=== PATIENT | female | born 1980 | race American Indian/Alaskan Native ===

== ENCOUNTER 2021-04-19 17:55 | Observation (INO) | payer SELFPAY ==
[2021-04-19] MEDS ORDERED: ONDANSETRON 4 MG/2 ML INJ IV ONE (18:38)
[2021-04-19] MEDS ORDERED: SODIUM CHLORIDE 0.9% 1000 ML 1,000 ML IV ONE (18:38)
[2021-04-19] MEDS ORDERED: KETOROLAC 30 MG/1 ML INJ IV ONE (18:38)
[2021-04-19 19:54] LABS: Basophils # (Auto) 0.1 K/mm3 (0.0-0.1); Basophils % (Auto) 0.6 % (0.0-1.8); Lymphocytes # (Auto) 1.7 K/mm3 (1.2-5.4); Lymphocytes % (Auto) 14.4 % (13.4-35.0); Mean Corpuscular HGB Conc 27 % (30-34); Monocytes # (Auto) 1.8 K/mm3 (0.0-0.8); Monocytes % (Auto) 14.8 % (0.0-7.3); Platelet Count 332 K/mm3 (140-440); Red Blood Count 3.26 M/mm3 (3.65-5.03)
[2021-04-19 19:56] LABS: Mean Corpuscular Volume 59 fl (79-97); Red Cell Distribution Width 20.7 % (13.2-15.2)
[2021-04-19 19:57] LABS: Hemoglobin 5.2 gm/dl (10.1-14.3)
[2021-04-19 19:58] LABS: Hematocrit 19.2 % (30.3-42.9)
[2021-04-19] MEDS ORDERED: SODIUM CHLORIDE 0.9% 500 ML 500 ML IV ONE (20:02)
--- NOTE | 2021-04-19 20:12 | Emergency Department Report ---
ED Lower Extremity HPI - General Chief Complaint: Extremity Injury, Lower Stated Complaint: L ANKLE PAIN Time Seen by Provider: 04/19/21 18:32 Source: patient, EMS Mode of arrival: Stretcher Limitations: No Limitations - History of Present Illness Initial Comments: PT PRESENTS WITH L ANKLE PAIN/SWELLING X2 DAYS. DENIES INJURIES. pt has history of iron deficiency anemia , doesn't take any meds , pt is poor historian , very uncooperative , denies fever chest pain or sob -: Gradual, days(s) (2) Injury: Ankle: Left Place: home Severity scale (0 -10): 7 Improves With: nothing Worsens With: weight bearing Context: other (sponatnaous ) - Related Data Allergies Allergy/AdvReac Type Severity Reaction Status Date / Time No Known Allergies Allergy Verified 04/19/21 17:57 ED Review of Systems ROS: Stated complaint: L ANKLE PAIN Other details as noted in HPI Constitutional: denies: chills, fever Eyes: denies: eye pain, eye discharge, vision change ENT: denies: ear pain, throat pain Respiratory: denies: cough, shortness of breath, wheezing Cardiovascular: denies: chest pain, palpitations Endocrine: no symptoms reported Gastrointestinal: denies: abdominal pain, nausea, diarrhea Genitourinary: denies: urgency, dysuria, discharge Musculoskeletal: denies: back pain, joint swelling, arthralgia Skin: denies: rash, lesions Neurological: denies: headache, weakness, paresthesias Psychiatric: denies: anxiety, depression Hematological/Lymphatic: denies: easy bleeding, easy bruising ED Past Medical Hx - Past Medical History Previous Medical History?: No ED Physical Exam - General Limitations: No Limitations General appearance: alert, in no apparent distress, other (uncooperative ) - Head Head exam: Present: atraumatic, normocephalic - Eye Eye exam: Present: normal appearance - ENT ENT exam: Present: mucous membranes moist - Neck Neck exam: Present: normal inspection - Respiratory Respiratory exam: Present: normal lung sounds bilaterally. Absent: respiratory distress - Cardiovascular Cardiovascular Exam: Present: regular rate, normal rhythm. Absent: systolic mu rmur, diastolic murmur, rubs, gallop - GI/Abdominal GI/Abdominal exam: Present: soft, normal bowel sounds - Extremities Exam Extremities exam: Present: normal inspection - Expanded Lower Extremity Exam Left Hip exam: Present: tenderness, swelling Ankle exam: Present: tenderness, swelling, erythema - Back Exam Back exam: Present: normal inspection - Neurological Exam Neurological exam: Present: alert, oriented X3 - Psychiatric Psychiatric exam: Present: normal affect, normal mood - Skin Skin exam: Present: warm, dry, intact, normal color. Absent: rash ED Course Vital Signs 04/19/21 04/19/21 04/19/21 17:56 19:25 20:32 Temperature 98 F Pulse Rate 108 H Respiratory 20 15 Rate Blood Pressure Blood Pressure 128/64 [Right] O2 Sat by Pulse 97 96 Oximetry 04/19/21 04/19/21 04/19/21 20:36 20:40 20:50 Temperature 97.5 F L Pulse Rate 109 H Respiratory 17 Rate Blood Pressure 95/48 95/48 Blood Pressure 87/40 [Right] O2 Sat by Pulse 95 100 100 Oximetry 04/19/21 04/19/21 04/19/21 21:00 21:10 21:20 Temperature Pulse Rate Respiratory Rate Blood Pressure 105/50 105/50 105/50 Blood Pressure [Right] O2 Sat by Pulse 99 100 100 Oximetry 04/19/21 04/19/21 04/19/21 21:30 21:40 21:50 Temperature Pulse Rate Respiratory Rate Blood Pressure 99/46 99/46 99/46 Blood Pressure [Right] O2 Sat by Pulse 99 100 100 Oximetry 04/19/21 04/19/21 04/19/21 22:00 22:10 22:15 Temperature 98.3 F 98.1 F Pulse Rate 96 H 104 H Respiratory 17 17 Rate Blood Pressure 87/39 87/39 87/39 Blood Pressure [Right] O2 Sat by Pulse 100 99 100 Oximetry 04/19/21 04/19/21 04/19/21 22:20 22:30 22:40 Temperature Pulse Rate Respiratory Rate Blood Pressure 87/39 97/48 97/48 Blood Pressure [Right] O2 Sat by Pulse 100 100 99 Oximetry 04/19/21 04/19/21 04/19/21 22:45 22:50 23:00 Temperature 98.8 F Pulse Rate 102 H Respiratory 15 Rate Blood Pressure 97/48 97/48 95/45 Blood Pressure [Right] O2 Sat by Pulse 99 99 100 Oximetry 04/19/21 04/19/21 23:04 23:05 Temperature 97.9 F 98.8 F Pulse Rate 94 H 95 H Respiratory 15 15 Rate Blood Pressure 95/45 95/45 Blood Pressure [Right] O2 Sat by Pulse 100 100 Oximetry - Reevaluation(s) Reevaluation #1: 04/19/21 20:08 pt is very uncooperative , causing mutlipleproblems with staff , initially she refused blood work and IV then refused morphine because she is allergic to but she never mentioned before , then she became silent refusing to answer any questions , then refused x ray then she didn;t allow US tech to do US cos she wanted to pee, brought bed side commode for her and offered to help but she wanted to pee in bed , she refused pure wick and cath , her H.H came back low she said she knows and she gets iron for that , typed and screened her but she refused blood worm finally she decided to leave because she doens;t want to be treated , vss other than her left nikki pain she doesn;t seem in distress 04/19/21 23:23 finally she agreed to get treatment and get Blood transfusion Reevaluation #2: 04/19/21 23:25 antibitoics given , started blood transfusion 2 units , NSAID given , ED Lower Extremity MDM - Lab Data Result diagrams: 04/19/21 19:31 04/19/21 19:31 Critical care attestation.: If time is entered above; I have spent that time in minutes in the direct care of this critically ill patient, excluding procedure time. ED Disposition Clinical Impression: Anemia, Left ankle swelling, UTI (urinary tract infection) Disposition: 07 LEFT AGAINST MEDICAL ADVICE Is pt being admited?: Yes Does the pt Need Aspirin: No Condition: Stable Forms: AMA Form
[2021-04-19 20:13] LABS: C-Reactive Protein 9.1 mg/dL (0.00-1.30); Uric Acid 2.7 mg/dL (3.5-7.6)
[2021-04-19 20:14] LABS: Alanine Aminotransferase 18 units/L (7-56); Albumin 2.8 g/dL (3.9-5); Blood Urea Nitrogen 10 mg/dL (7-17); Calcium 8.4 mg/dL (8.4-10.2); Hemolysis Index 0
--- NOTE | 2021-04-19 20:16 | XRay Report ---
LEFT ANKLE 3 VIEW(S) INDICATION / CLINICAL INFORMATION: Lower Extremity Injury COMPARISON: None available. FINDINGS: BONES / JOINT(S): No acute fracture or subluxation. No significant arthritis. SOFT TISSUES: There is mild soft tissue swelling over the lateral malleolus. ADDITIONAL FINDINGS: None. Signer Name: Rock Flores MD Signed: 04/19/2021 8:12 PM Workstation Name: [id number]
[2021-04-19 20:20] LABS: BUN/Creatinine Ratio 20
[2021-04-19 20:49] LABS: Bacteria,Urine 4+ /HPF (Negative); Bilirubin,Urine NEG (Negative); Blood,Urine SM (Negative); Color,Urine Yellow (Yellow); Hyaline Casts,Urine 2 /LPF; Mucus,Urine FEW /HPF; Urobilinogen,Urine < 2.0 mg/dL (<2.0)
[2021-04-19 21:10] LABS: Amphetamine Screen,Urine Negative; Benzodiazepines Screen,Urine Negative; Cannabinoid Screen,Urine Negative; Cocaine Screen,Urine Negative; Methadone Screen,Urine Negative; Opiate Screen,Urine Negative
[2021-04-19] MEDS ORDERED: cefTRIAXone/NS 1 GM/50 ML 1 GM/50 ML BAG IV ONE (23:24)
[2021-04-19] MEDS ORDERED: ONDANSETRON 4 MG/2 ML INJ IV PRN (23:28)
[2021-04-19] MEDS ORDERED: MORPHINE 2 MG/1 ML INJ IV PRN (23:28)
[2021-04-19] MEDS ORDERED: HYDROmorphone 1 MG/1 ML INJ IV PRN (23:28)
[2021-04-19] MEDS ORDERED: ACETAMINOPHEN 325 MG TAB PO PRN (23:28)
[2021-04-19] MEDS ORDERED: ALBUTEROL 2.5 MG/3 ML NEBU IH PRN (23:28)
--- NOTE | 2021-04-19 23:36 | History and Physical Report ---
History of Present Illness Date of examination: 04/19/21 Date of admission: 04/19/21 Chief complaint: Left lower extremity pain swelling History of present illness: 48 years old female with history of iron deficiency anemia was brought to the emergency room because of left ankle pain and swelling for the last 2 days. Patient denies any injuries . X-ray of the left ankle shows mild soft tissue swelling over the lateral malleolus.Patient doesn't take any meds , pt is poor historian , very uncooperative , denies fever chest pain or sob In the emergency room patient is found to have hemoglobin of 5.2 and hematocrit 19.2, also patient has UTI. She was giving 2 unit of packed red blood cell we put the patient on antibiotic Past History Past Medical History: other (Iron deficiency anemia) Medications and Allergies Allergies Allergy/AdvReac Type Severity Reaction Status Date / Time No Known Allergies Allergy Verified 04/19/21 17:57 Active Meds: Active Medications Acetaminophen (Acetaminophen 325 Mg Tab) 650 mg PO Q4H PRN PRN Reason: Pain MILD(1-3)/Fever >100.5/MONK Albuterol (Albuterol 2.5 Mg/3 Ml Nebu) 2.5 mg IH Q3HRT PRN PRN Reason: Shortness Of Breath Albuterol/Ipratropium (Ipratropium/Albuterol Sulfate 3 Ml Ampul.Neb) 1 ampul IH Q6HRT DAYLIN Famotidine (Famotidine 20 Mg Tab) 20 mg PO BID DAYLIN Ferrous Sulfate (Ferrous Sulfate 325 Mg Tab) 325 mg PO BID DAYLIN Hydromorphone HCl (Hydromorphone 1 Mg/1 Ml Inj) 0.5 mg IV Q3H PRN PRN Reason: Pain , Severe (7-10) Ceftriaxone Sodium (Rocephin/Ns 1 Gm/50 Ml) 1 gm in 50 mls @ 100 mls/hr IV ONCE ONE; Protocol Stop: 04/19/21 23:53 Ceftriaxone Sodium (Rocephin/Ns 2 Gm/100 Ml) 2 gm in 100 mls @ 200 mls/hr IV Q24H DAYLIN; Protocol Morphine Sulfate (Morphine 2 Mg/1 Ml Inj) 2 mg IV Q4H PRN PRN Reason: Pain, Moderate (4-6) Ondansetron HCl (Ondansetron 4 Mg/2 Ml Inj) 4 mg IV Q8H PRN PRN Reason: Nausea And Vomiting Sodium Chloride (Sodium Chloride 0.9% 10 Ml Flush Syringe) 10 ml IV BID DAYLIN Sodium Chloride (Sodium Chloride 0.9% 10 Ml Flush Syringe) 10 ml IV PRN PRN PRN Reason: LINE FLUSH Review of Systems Musculoskeletal: arthritis (Left ankle pain swelling), other Exam - Constitutional Vitals: Temp Pulse Resp BP Pulse Ox 98.8 F 95 H 15 91/47 100 04/19/21 23:05 04/19/21 23:05 04/19/21 23:05 04/19/21 23:30 04/19/21 23:30 General appearance: Present: no acute distress, well-nourished - EENT Eyes: Present: PERRL ENT: hearing intact, clear oral mucosa - Neck Neck: Present: supple, normal ROM - Respiratory Respiratory effort: normal Respiratory: bilateral: CTA - Cardiovascular Heart Sounds: Present: S1 & S2. Absent: rub, click - Extremities Extremities: pulses symmetrical, No edema Extremity abnormal: other (Left ankle pain and swelling) Peripheral Pulses: within normal limits - Abdominal General gastrointestinal: Present: soft, non-tender, non-distended, normal bowel sounds Female genitourinary: Present: normal - Integumentary Integumentary: Present: clear, warm, dry - Musculoskeletal Musculoskeletal: gait normal, strength equal bilaterally - Psychiatric Psychiatric: appropriate mood/affect, intact judgment & insight - Neurologic Neurologic: CNII-XII intact, moves all extremities Results - Labs CBC & Chem 7: 04/19/21 19:31 04/19/21 19:31 Labs: Laboratory Last Values WBC 11.9 K/mm3 (4.5-11.0) H 04/19/21 19:31 RBC 3.26 M/mm3 (3.65-5.03) L 04/19/21 19:31 Hgb 5.2 gm/dl (10.1-14.3) L* 04/19/21 19:31 Hct 19.2 % (30.3-42.9) L* 04/19/21 19:31 MCV 59 fl (79-97) L 04/19/21 19:31 MCH 16 pg (28-32) L 04/19/21 19:31 MCHC 27 % (30-34) L 04/19/21 19:31 RDW 20.7 % (13.2-15.2) H 04/19/21 19: Plt Count 332 K/mm3 (140-440) 04/19/21 19: Lymph % (Auto) 14.4 % (13.4-35.0) 04/19/21 19: Steele % (Auto) 14.8 % (0.0-7.3) H 04/19/21: Eos % (Auto) 0.0 % (0.0-4.3) 04/19/21 19: Baso % (Auto) 0.6 % (0.0-1.8) 04/19/21 19: Lymph # (Auto) 1.7 K/mm3 (1.2-5.4) 04/19/21: Steele # (Auto) 1.8 K/mm3 (0.0-0.8) H 04/19/21: Eos # (Auto) 0.0 K/mm3 (0.0-0.4) 04/19/21: Baso # (Auto) 0.1 K/mm3 (0.0-0.1) 04/19/21 19: Seg Neutrophils % 70.2 % (40.0-70.0) H 04/19/21: Seg Neutrophils # 8.4 K/mm3 (1.8-7.7) H 04/19/21 19: Sodium 137 mmol/L (137-145) 04/19/21 19: Potassium 4.0 mmol/L (3.6-5.0) 04/19/21: Chloride 102.4 mmol/L (98-107) 04/19/21 19: Carbon Dioxide 25 mmol/L (22-30) 04/19/21 19: Anion Gap 14 mmol/L 04/19/21: BUN 10 mg/dL (7-17) 04/19/21: Creatinine 0.5 mg/dL (0.6-1.2) L 04/19/21 19: Estimated GFR > 60 ml/min 04/19/21 19: BUN/Creatinine Ratio 20 % 04/19/21 19: Glucose 106 mg/dL (65-100) H 04/19/21 19: Uric Acid 2.7 mg/dL (3.5-7.6) L 04/19/21: Calcium 8.4 mg/dL (8.4-10.2) 04/19/21: Total Bilirubin < 0.20 mg/dL (0.1-1.2) 04/19/21: AST 9 units/L (5-40) 04/19/21: ALT 18 units/L (7-56) 04/19/21: Alkaline Phosphatase 92 units/L (35-129) 04/19/21: Total Creatine Kinase 38 units/L (30-135) 04/19/21: C-Reactive Protein 9.10 mg/dL (0.00-1.30) H 04/19/21: Total Protein 6.0 g/dL (6.3-8.2) L 04/19/21: Albumin 2.8 g/dL (3.9-5) L 04/19/21: Albumin/Globulin Ratio 0.9 % 04/19/21: Urine Color Yellow (Yellow) 04/19/21: Urine Turbidity Clear (Clear) 04/19/21: Urine pH 7.0 (5.0-7.0) 04/19/21: Ur Specific [place] 1.014 (1.003-1.030) 04/19/21: Urine Protein 100 mg/dl mg/dL (Negative) 04/19/21: Urine Glucose (UA) Neg mg/dL (Negative) 04/19/21: Urine Ketones Neg mg/dL (Negative) 04/19/21 20: Urine Blood Sm (Negative) 04/19/21: Urine Nitrite Neg (Negative) 04/19/21 Ur Reducing Substances Not Reportable 04/19/21: Urine Bilirubin Neg (Negative) 04/19/21 Urine Ictotest Not Reportable 04/19/21 Urine Urobilinogen < 2.0 mg/dL (<2.0) 04/19/21: Ur Leukocyte Esterase Lg (Negative) 04/19/21 20: Urine WBC (Auto) 21.0 /HPF (0.0-6.0) H 04/19/21 20:26 Urine RBC (Auto) 5.0 /HPF (0.0-6.0) 04/19/21 20: U Epithel Cells (Auto) 3.0 /HPF (0-13.0) 04/19/21 20: Urine Bacteria (Auto) 4+ /HPF (Negative) 04/19/21 20: Hyaline Casts 2 /LPF 04/19/21 20: Urine Mucus Few /HPF 04/19/21 20: Urine Yeast (Budding) 1+ /HPF 04/19/21 20: Urine Opiates Screen Negative 04/19/21 20: Urine Methadone Screen Negative 04/19/21 20: Ur Barbiturates Screen Negative 04/19/21 20: Ur Phencyclidine Scrn Negative 04/19/21 20: Ur Amphetamines Screen Negative 04/19/21 20: U Benzodiazepines Scrn Negative 04/19/21 20: Urine Cocaine Screen Negative 04/19/21 20: U Marijuana (THC) Screen Negative 04/19/21 20: Drugs of Abuse Note Disclamer 04/19/21 20: Blood Type O POSITIVE 04/19/21 20:00 Antibody Screen Negative 04/19/21 20:00 Crossmatch See Detail 04/19/21 20:00 Assessment and Plan VTE prophylaxis?: Mechanical Plan of care discussed with patient/family: Yes - Patient Problems (1) Anemia Current Visit: Yes Status: Acute Plan to address problem: Admit the patient to the medical floor. We are transfusing 2 unit of packed red blood cell. We will send the iron study. We also put the patient on ferrous sulfate 325 mg p.o. twice daily. We send a stool for guaiac. Pepcid 20 mg p.o. twice daily. Recheck CBC in the morning. Consult GI if needed (2) Left ankle swelling Current Visit: Yes Status: Acute Plan to address problem: Tylenol 650 mg p.o. every 6 hours as needed. Morphine 2 mg IV every 4 hours as needed. (3) UTI (urinary tract infection) Current Visit: Yes Status: Acute Plan to address problem: Rocephin 2 g IV daily. We will send the urine for culture (4) DVT prophylaxis Current Visit: Yes Status: Acute Plan to address problem: SCD for DVT prophylaxis. Pepcid 20 mg p.o. twice daily for GI prophylaxis. Patient is a full code
[2021-04-20 05:02] VITALS: BP 115/64
[2021-04-20 08:08] LABS: Hematocrit 24.8 % (30.3-42.9); Hemoglobin 7.6 gm/dl (10.1-14.3); Mean Corpuscular HGB Conc 31 % (30-34); Platelet Count 320 K/mm3 (140-440); Red Blood Count 3.78 M/mm3 (3.65-5.03)
[2021-04-20 08:10] LABS: Mean Corpuscular Volume 66 fl (79-97); Red Cell Distribution Width 29.5 % (13.2-15.2)
[2021-04-20 08:24] LABS: BUN/Creatinine Ratio 21; Blood Urea Nitrogen 17 mg/dL (7-17); Calcium 8.2 mg/dL (8.4-10.2); Hemolysis Index 1
[2021-04-20] MEDS: IPRATROPIUM/ALBUTEROL SULFATE 3 ML AMPUL.NEB IH SCH ×2 (09:31→14:53)
[2021-04-20 09:45] LABS: Total Cells Counted 100
[2021-04-20 09:46] LABS: Anisocytosis 3+; Hypochromasia 2+; Large Platelets Few; Platelet Estimate Consistent w Auto; Target Cells 1+
[2021-04-20] MEDS ORDERED: cefTRIAXone/NS 2 GM/100 ML 2 GM/100 ML BAG IV SCH (10:00)
[2021-04-20] MEDS ORDERED: FERROUS SULFATE 325 MG TAB PO SCH (10:00)
[2021-04-20] MEDS ORDERED: FAMOTIDINE 20 MG TAB PO SCH (10:00)
--- NOTE | 2021-04-20 13:02 | Discharge Summary ---
Providers - Providers Date of Admission: 04/19/21 23:28 Date of discharge: 04/20/21 Attending physician: NORBERTO ORTIZ MD Primary care physician: FREDDY GUARDADO Hospitalization Reason for admission: Left lower extremity swelling Condition: Stable Pertinent studies: Reviewed. Procedures: Transfusion of packed RBCs Hospital course: Patient is a 40-year-old female with past medical history of iron deficiency anemia and unfiltered homelessness who presented with 2 days of left ankle pain and swelling. The patient denies any injuries or harm/trauma from others. An x-ray of the left ankle revealed mild soft tissue swelling over the lateral malleolus but no signs of fracture. The patient was found to have a hemoglobin of 5.2, and it was recommended that the patient undergo transfusion of 2 units of packed RBCs. The patient refused multiple times and became uncooperative. Multiple attempts were made in the emergency room to make the patient feel more at ease and appropriately treat the patient but to no avail. In the setting of left lower extremity swelling, a venous Doppler was ordered to evaluate for DVT. However, the patient refused treatment. At 1 point in time she attempted to leave AMA. The patient later changed her mind and was admitted to the floor for further management. There she was transfused 2 units of packed RBCs with an improvement in her hemoglobin from 5.2 to 7.6. On the floor, the patient has since refused physical examination by the hospitalist. The patient still continues to refuse venous Doppler for DVT evaluation. The patient was found to have a urinalysis revealing negative nitrites, large leukocyte esterase, WBC 21, 4+ bacteria, and 1+ budding yeast. However, the patient denies any symptoms of frequency, dysuria, urgency. Therefore, the patient likely has asymptomatic bacteriuria as opposed to acute cystitis without hematuria. The patient was evaluated by social work who provided her with community resources. The patient is medically cleared for discharge. Disposition: HOME / SELF CARE / HOMELESS Final Discharge Diagnosis (Prints w/discharge instructions): Soft tissue swelling of left lower extremity, iron deficiency anemia, asymptomatic bacteriuria, and unsheltered homelessness Time spent for discharge: 45 min Core Measure Documentation - Palliative Care Palliative Care/ Comfort Measures: Not Applicable - Core Measures Any of the following diagnoses?: none Exam - Physical Exam Narrative exam: Unable to perform full physical exam as the patient refused. - Constitutional Vitals: Temp Pulse Resp BP Pulse Ox 99.5 F 92 H 16 115/64 100 04/20/21 05:02 04/20/21 05:02 04/20/21 05:02 04/20/21 05:02 04/20/21 09:31 General appearance: Present: no acute distress, well-nourished, disheveled, malodorous - EENT Eyes: Present: PERRL, EOM intact ENT: hearing intact, clear oral mucosa, poor dentition - Extremities Extremity abnormal: edema (Edema of left foot and ankle), tenderness - Abdominal Female genitourinary: Present: deferred - Rectal Rectal Exam: deferred - Psychiatric Psychiatric: other (Uncooperative; avoidant) - Neurologic Neurologic: moves all extremities - Allied Health Allied health notes reviewed: nursing Plan Activity: advance as tolerated Weight Bearing Status: Non-Weight Bearing (On left ankle) Diet: regular Durable Medical Equipment Needed Upon Discharge: Crutches Additional Instructions: Patient is a 40-year-old female with past medical history of iron deficiency anemia and unfiltered homelessness who presented with 2 days of left ankle pain and swelling. The patient denies any injuries or harm/trauma from others. An x-ray of the left ankle revealed mild soft tissue swelling over the lateral malleolus but no signs of fracture. The patient was found to have a hemoglobin of 5.2, and it was recommended that the patient undergo transfusion of 2 units of packed RBCs. The patient refused multiple times and became uncooperative. Multiple attempts were made in the emergency room to make the patient feel more at ease and appropriately treat the patient but to no avail. In the setting of left lower extremity swelling, a venous Doppler was ordered to evaluate for DVT. However, the patient refused treatment. At 1 point in time she attempted to leave AMA. The patient later changed her mind and was admitted to the floor for further management. There she was transfused 2 units of packed RBCs with an improvement in her hemoglobin from 5.2 to 7.6. On the floor, the patient has since refused physical examination by the hospitalist. The patient still continues to refuse venous Doppler for DVT evaluation. The patient was found to have a urinalysis revealing negative nitrites, large leukocyte esterase, WBC 21, 4+ bacteria, and 1+ budding yeast. However, the patient denies any symptoms of frequency, dysuria, urgency. Therefore, the patient likely has asymptomatic bacteriuria as opposed to acute cystitis without hematuria. The patient was evaluated by social work who provided her with community resources. The patient is medically cleared for discharge. Care Plan Goals: Patient is medically clear for discharge. Assessment: Patient is a 40-year-old female with past medical history of iron deficiency anemia and unfiltered homelessness who presented with 2 days of left ankle pain and swelling. The patient denies any injuries or harm/trauma from others. An x-ray of the left ankle revealed mild soft tissue swelling over the lateral malleolus but no signs of fracture. The patient was found to have a hemoglobin of 5.2, and it was recommended that the patient undergo transfusion of 2 units of packed RBCs. The patient refused multiple times and became uncooperative. Multiple attempts were made in the emergency room to make the patient feel more at ease and appropriately treat the patient but to no avail. In the setting of left lower extremity swelling, a venous Doppler was ordered to evaluate for DVT. However, the patient refused treatment. At 1 point in time she attempted to leave AMA. The patient later changed her mind and was admitted to the floor for further management. There she was transfused 2 units of packed RBCs with an improvement in her hemoglobin from 5.2 to 7.6. On the floor, the patient has since refused physical examination by the hospitalist. The patient still continues to refuse venous Doppler for DVT evaluation. The patient was found to have a urinalysis revealing negative nitrites, large leukocyte esterase, WBC 21, 4+ bacteria, and 1+ budding yeast. However, the patient denies any symptoms of frequency, dysuria, urgency. Therefore, the patient likely has asymptomatic bacteriuria as opposed to acute cystitis without hematuria. The patient was evaluated by social work who provided her with community resources. The patient is medically cleared for discharge. Follow up with: FREDDY GUARDADO MD [Primary Care Provider] - 3-5 Days Forms: AMA Form Prescriptions: Ibuprofen [Motrin] 600 mg PO Q8H PRN #21 tablet PRN Reason: Pain
[2021-04-20] MEDS ORDERED: IBUPROFEN 600 MG TAB PO PRN (13:10)
== END 2021-04-20 17:35 | disposition home or self-care (01) ==
LOC: ED 17:55 → 3A 23:28 → INTOOBSV 23:28
PROVIDERS: ADMIT Hospitalist; ATTEND Student in an Organized Health Care Education/Training Program
DX: D50.9 Iron deficiency anemia, unspecified (principal); M79.89 Other specified soft tissue disorders; R82.71 Bacteriuria; N39.0 Urinary tract infection, site not specified; Z59.01 Sheltered homelessness; Z79.899 Other long term (current) drug therapy; Z98.890 Other specified postprocedural states
CPT/HCPCS: 36415; 36430; 73610; 80048; 80053; 80307; 81001; 82550; 84550; 85025; 86140; 86850; 86900; 86901; 86920; 87076; 87086; 87186; 94640; 96361; 96374; 96375; 99284; G0378; J1885; J2405; J7030; J7040; P9016; 85007; Q0162